=== PATIENT | male | born 1945 ===

== ENCOUNTER 2020-11-26 13:06 | Emergency (ER) | payer MEDICARE ==
[2020-11-26] MEDS ORDERED: Ketorolac Tromethamine 30 MG/ML VIAL ONE (15:54)
== END 2020-11-26 17:07 | disposition home or self-care (01) ==
LOC: ERS 13:06
DX: M19.90 Unspecified osteoarthritis, unspecified site (principal); E11.9 Type 2 diabetes mellitus without complications; E78.5 Hyperlipidemia, unspecified; I10 Essential (primary) hypertension; Z79.84 Long term (current) use of oral hypoglycemic drugs; Z79.899 Other long term (current) drug therapy
CPT/HCPCS: 96372; 99283; J1885